=== PATIENT | female | born 1995 | race Caucasian/White ===

== ENCOUNTER → 2019-03-12 10:07 | Outpatient (CLI) | payer MEDICAID, SELFPAY | PROVIDERS: Family Provider Family Medicine; PCP Family Medicine; Referring Provider Advanced Practice Midwife; Visit Provider Advanced Practice Midwife | DX: O34.82 Maternal care for other abnormalities of pelvic organs, second trimester (principal); Z81.8 Family history of other mental and behavioral disorders; Z34.02 Encounter for supervision of normal first pregnancy, second trimester | CPT/HCPCS: 36415 ==

== ENCOUNTER 2019-08-06 12:15 | Inpatient (IN) | payer MEDICAID, SELFPAY ==
[2019-08-06 12:33] VITALS: BMI 34.8
[2019-08-06 13:41] LABS: Absolute Lymphocyte Count 1.98 X10^3/uL (0.83-4.51); Absolute Neutrophil Count 9.2 X10^3/uL (2.0-7.7); Basophil# 0.04 X10^3/uL; Basophil% 0.3 % (0-1); Eosinophil# 0.02 X10^3/uL; Eosinophils% 0.2 % (0-5); Hematocrit 36.9 % (37-47); Hemoglobin 11.7 g/dL (12.0-15.0); Lymphocyte # 1.98 X10^3/ul (4.0); Lymphocyte % 16.4 % (19-41); Mean Corp Hgb Conc 31.7 g/dL (32-36); Mean Corpuscular Hgb 26.1 pg (27.0-32.0); Mean Corpuscular Volume 82.2 fL (81-99); Mean Platelet Vol. 11.3 fl (6.2-12.0); Monocyte# 0.71 X10^3/uL; Monocyte% 5.9 % (0-10); NRBC Flagged by Analyzer 0 % (0-5); Neutrophil # 9.24 X10^3/uL (2.7-7.7); Neutrophil % 76.5 % (47-70); Platelet Count 262 K/mm3 (150-450); RBC Distribution Width CV 14.8 % (11.6-14.6); Red Blood Count 4.49 M/mm3 (4.2-5.4); White Blood Count 12.1 K/mm3 (4.4-11.0)
[2019-08-06 13:50] LABS: Prothrombin Time (Protime)PT. 12.8 SECONDS (11.7-14.9)
[2019-08-06 13:51] LABS: Partial Thromboplast Time 25.6 Seconds (24.1-36.2)
[2019-08-06 13:58] LABS: AST(SGOT) 12 U/L (15-37); Alanine Aminotransfer ALT/SGPT 7 U/L (13-56); Creatinine, Serum 0.63 mg/dL (0.55-1.02); EST Glomerular Filtration Rate 123 mL/min (>60); Est Glom Filt Rate - Afr Amer 148 mL/min (>60); Estimated Creatinine Clearance 112.92 ml/min; Uric Acid 5.7 mg/dL (2.6-6.0)
[2019-08-06] MEDS: Lactated Ringers 1,000 ML 50 ML IV (14:00)
[2019-08-06] MEDS: miSOPROStol 25 MCG TABLET VAGINAL (14:05)
[2019-08-06 16:35] LABS: Protein, Urine (Random) 141.3 mg/dL (<11.9); Protein:Creat Ratio 1229 mg/g CRE (0-200)
[2019-08-06] MEDS: 0.9% Normal Saline Single 100 ML IV.SOLN. IY (17:17)
--- NOTE | 2019-08-06 17:23 | PCM.HP.OB ---
History Date of Admission: 08/06/19 Final MARGARET: 08/06/19 Gestational age: 40 Weeks and 0 Days History of this : Patient presents from office for induction. Surgical History: Surgical History (Last Updated 08/06/19 @ 17:25 by Queenie Beck) History of tonsillectomy Z90.89 Allergies No Known Allergies Allergy (Verified 08/06/19 12:34) Home Medications: Home Medications Multivitamin [Children's Chewable Vitamin] 1 ea PO DAILY 08/06/19 Smoking Status: Never smoker Alcohol: None Number of Fetus(es): 1 NST - FHR Rate Baby A Baseline: 135 Variability:: Moderate Accelerations:: 15 x 15 Decelerations:: None NST Reactive:: Yes Uterine Activity:: Q2-3 minutes History Past Pregnancies: Past Pregnancies Delivery Date Name GA/ Weeks Outcome Route Wt Infant Sex Labor Length Anesthesia Delivery Location Provider FOB Labs: See [facility] H[facility]P Physical Exam General: Alert, Oriented x3 Abdomen: Soft, Non Tender, Non-Distended, Gravid Neurological: Cranial nerves II-XII grossly intact PER DIEM INTERPRETER: Normal external genitalia Estimated gestational size: Appropriate for gestational size Cervix Dilation (cm): 1 - Intracervical glover placed Station: -3 Effacement (%): 60 Assessment/Plan This is a 23 year-old, at 40 weeks gestational age with gestational hypertension. Admit to L&D. Gestational hypertension - s/p 1 dose cytotec & intracervical glover just placed. Will start pitocin at 7pm. Bp's overall normal to mildly elevated at this time. GBS negative. EFW less than 4500g - patient with adequate pelvis. Pain - epidural as desired.
[2019-08-06] MEDS: Oxytocin 30 units/NS 500 ml 30 UNITS/500 ML IV.SOLN IV (19:09)
[2019-08-06] MEDS: Lactated Ringers 500 ML 999 ML IV (20:36)
[2019-08-06] MEDS: fentaNYL-bupivacaine (epidural) 100 ML BAG EPIDURAL (21:28)
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
[2019-08-06] MEDS: Lactated Ringers 1,000 ML 200 ML IV (23:40)
[2019-08-07] VITALS (31 sets, daily range): BP systolic 94–171; BP diastolic 59–104; PULSE 86–113; RESP 15–24; TEMP 36.3–37; O2SAT 96–100
[2019-08-07] MEDS: Ondansetron 4 MG/2 ML Vial IV ×2 (01:25→06:40)
[2019-08-07] MEDS: fentaNYL-bupivacaine (epidural) 100 ML BAG EPIDURAL ×2 (02:03→07:29)
[2019-08-07] MEDS: Magnesium Sulfate 4gm/100mL 4 GM/100 ML IV.SOLN. IV (04:18)
[2019-08-07] MEDS: Lactated Ringers 1,000 ML 50 ML IV (04:36)
[2019-08-07] MEDS: Magnesium Sulfate 20 GM/500 ML BAG IV ×3 (04:36→23:55)
--- NOTE | 2019-08-07 08:25 | PCM.PN.BLA ---
Progress Note At bedside to check on pt. She has just started with pushing about 30-45 min ago. Patient is exhausted and feels she cannot push adequately. Cvx 10/100/0, ROP. Continue current care. Will try position changes with pushing STROKE Vital Signs/Narrative: Vital Signs Temp Pulse Resp BP Pulse Ox 08/07/19 07:30 98.1 F 110 H 16 137/87 H 99
--- NOTE | 2019-08-07 10:16 | PCM.PN.BLA ---
Progress Note At bedside to examine pt. She has now been pushing for almost 3 hours. There has been no change in station. Baby did not rotate with position changes. Attempted to manually rotate baby, and baby remains in ROP position. The patient is exhausted and pushing is poor. Unable to perform a vacuum assisted delivery given station. Discussed primary section with patient vs pushing for additional time but unlikely to make any progress. Recommend a section at this time for maternal exhaustion, poor maternal pushing, arrest of descent, persistent occiput posterior position, pre-eclampsia. STROKE Vital Signs/Narrative: Vital Signs Temp Pulse Resp BP Pulse Ox 08/07/19 09:30 98.4 F 104 H 18 145/84 H 100 08/07/19 08:45 113 H 16 131/87 H 99 08/07/19 07:30 98.1 F 110 H 16 137/87 H 99
[2019-08-07] MEDS: Cefazolin 2 GM in 0.9% Normal Saline 100 ML IV (10:45)
[2019-08-07] MEDS: Sodium Citrate/Citric Acid 30 ML UDC PO (10:47)
--- NOTE | 2019-08-07 10:52 | PCM.PN.BLA ---
Progress Note Reviewed risks including but not limited to bleeding, hemorrhage needing a blood transfusion, infection, injury to surrounding organs and vessels. Patient understands the risks with a c section, and desires to proceed. STROKE Vital Signs/Narrative: Vital Signs Temp Pulse Resp BP Pulse Ox 08/07/19 09:30 98.4 F 104 H 18 145/84 H 100 08/07/19 08:45 113 H 16 131/87 H 99 08/07/19 07:30 98.1 F 110 H 16 137/87 H 99
[2019-08-07] MEDS: Carboprost Tromethamine 250 MCG/ML Ampul IM (11:19)
--- NOTE | 2019-08-07 11:50 | PCM.OPRPT ---
Problem List (1) 39 weeks gestation of Status: Acute (2) Primiparous Status: Acute (3) Gestational hypertension Status: Acute (4) Preeclampsia Status: Acute (5) Arrested labor Status: Acute Report of Operation Date of Procedure: 08/07/19 Pre-Operative Diagnosis: 39 week gestation, primiparous patient, gHTN with superimposed pre-eclampsia with severe features, arrest of descent, maternal exhaustion with pushing Post-Operative Diagnosis: As above Surgery/Procedure Performed:: PLTCS via pfannenstiel incision Description of Surgical Findings:: Normal-appearing uterus and bilateral fallopian tubes and ovaries. Fetus in vertex position. Clear fluid. Normal-appearing and intact placenta. Type of Anesthesia:: Epidural Specimen's removed: Placenta Drains: Diallo Estimated Blood Loss (mL): 900 cc Description of Procedure: Indications: IOL started at 39 wk gestation for gHTN. She had persistent severe range BP's and an elevated p/c ratio, therefore she was diagnosed with pre-eclampsia with severe features and started on mag gtt for seizure prophylaxis. She progressed to complete. She pushed for 3 hours with poor pushing effort, and maternal exhaustion. Station remained at 0. Fetus remained in occiput posterior position despite position changes and attempt at rotation. After discussion of risks, benefits, and alternatives patient desired to proceed with a primary section. Patient was taken to the operating room where epidural anesthesia was found to be adequate. The patient was prepped and draped in the usual sterile fashion in the supine position with a leftward tilt. A Pfannenstiel skin incision was made. The skin incision was carried down to the underlying layer of the fascia with sharp dissection. The fascia was incised in the midline and extended laterally using Calzada scissors. The fascia was then dissected off of the rectus muscles using a combination of blunt and sharp dissection. The rectus muscles were in the midline. The peritoneum was entered carefully with sharp dissection and extended cephalad and caudad with good visual visualization of the bladder. The vesicouterine peritoneum was dissected off the lower uterine segment. A low transverse incision was made along the uterus and the uterine incision was extended bluntly. The fetus was presenting in vertex position and in occiput posterior position. Using a hand from below the head was brought up to the incision, and the head was delivered without difficulty followed by the body easily. The cord was clamped and cut and the baby was handed off to the nursery staff. Cord blood was then obtained. The placenta was delivered manually and noted to be normal-appearing and intact. Uterus was explored and cleared of all clot and debris. The uterus was exteriorized for better visualization. The uterine incision was then closed in 1 layer with Vicryl suture. The tubes and ovaries were examined and appeared to be normal. The uterine incision was hemostatic. The uterus was placed back in the abdomen. The peritoneum was closed with a running Vicryl stitch. The fascia was closed with a running Vicryl stitch. The subcutaneous layer was irrigated and reapproximated using Vicryl. The skin was then reapproximated using a running Monocryl suture. At the end of the procedure all instrument counts were correct. The patient was taken to the recovery room in stable condition. Grafts/Implants Used: None - Complications None - Admit VTE Documentation VTE Present on Admission: No Delivery Classification: MANPREET Gestational age: 39 wks Type of Anesthesia:: Epidural Date of Procedure: 08/07/19 Indications for : Arrrest of Descent Amniotic Fluid Description: Clear Placenta Disposition: Routine to Lab Drain: Diallo to straight drain Cord Entanglement: None Infant Gender: Female Delayed cord clamping: No - Admit VTE Documentation VTE Present on Admission: No VTE Mechan Device Prophylaxis: SCD's VTE Pharm Prophylaxis ordered?: Yes
--- NOTE | 2019-08-07 11:54 | PLAC_PTH ---
PATIENT: FEROZ MAXWELL LOC: [facility] U#:[id number] AGE/SX: 23/ ROOM: WP006 RE08/06/[address]: Dr. Nika Jaramillo DO : 1995 BED: 1 DIS: 08/11/2019 SPEC #: [id number] RECD: 08/07/19 14:03 STATUS: HAILEY REQ #: [id number] RAFAEL: 08/07/19 11:[address]: Nika Jaramillo DEPT: SURGICAL PATHOLOGY RECD BY: Ahmet Jennings ENTERED: 08/07/19 14:10 SP TYPE: PLACENTA OTHR DR: Dr. Reji Calderón MD Tissues: Placenta, NOS Procedures: Surgery Specimen Level V HEADER OPERATION: Primary section PRE-OP DIAGNOSIS: Preeclampsia with severe features TISSUE SUBMITTED: Placenta MICROSCOPIC DIAGNOSIS Placenta: Placental disc - third trimester placenta (477 gm). - Focal mild acute vasculitis of subamnionic blood vessels. - Focal area of intraparenchymal hemorrhage (0.5 cm in greatest dimension). Membranes - focal mild acute chorioamnionitis. Umbilical cord - three blood vessels and no pathologic diagnosis. SJ:valerie 08/09/19 MICROSCOPIC DESCRIPTION Slides are reviewed. GROSS DESCRIPTION SPECIMEN: PLACENTA / CLINICAL INFORMATION: A. Weight: 2.99 kg B. Gestational Age: 40 weeks C. Sex: Female PLACENTAL WEIGHT (POST FIXATION): 477 gm PLACENTAL DIMENSIONS: 16 x 14 x 3 cm PLACENTAL SHAPE: Usual ovoid PLACENTAL WEIGHT FOR GESTATIONAL AGE: Within 10-99th percentile MEMBRANES - Present A. Insertion: Marginal B. Site of rupture from edge: At edge of placental disc C. Color of membrane: Upton-glez D. Abnormalities: None UMBILICAL CORD - Present A. Color: Upton-glez B. Insertion: Eccentric C. Length: 27 cm D. Diameter: 1 cm E. Number of vessels: Three F. Abnormalities: None PLACENTAL DISC - Present A. Color of surface: Upton-glez B. surface abnormalities: None C. Maternal cotyledons: Intact with minimal tears D. Attached retro placental clot: No clot E. Cut surface: Dark red and spongy F. Lesions: None G. Separate clot: 6 x 4.5 x 1.5 cm SECTIONS SUBMITTED: 1. Umbilical cord ( end inked) 2. Membrane roll 3. Placental disc, and maternal surfaces 4. Placental disc, and maternal surfaces 5. Placental disc, and maternal surfaces AM:valerie 08/08/19 TC:2 CPT: 11513
[2019-08-07] MEDS: miSOPROStol 200 MCG Tablet 800 MCG RECTAL (12:00)
[2019-08-07] MEDS: Oxytocin 30 units/NS 500 ml 30 UNITS/500 ML IV.SOLN 167 UNITS IV (12:20)
[2019-08-07] MEDS: Labetalol 100 MG Tablet PO ×2 (14:58→22:23)
[2019-08-07] MEDS: Lactated Ringers 1,000 ML 75 ML IV (15:41)
--- NOTE | 2019-08-07 19:45 | NURSING ---
IV pump set at correct settings for Magnesium Sulfate at 50 mL/hour upon arrival of this RN's shift. The rate was documented incorrectly on the IV titration sheet during the previous shift, but was administered correctly. IV titration sheet adjusted to the correct rate upon start of this RN's assessment.
--- NOTE | 2019-08-07 20:07 | NURSING ---
Indwelling urinary catheter in place. WNL.
--- NOTE | 2019-08-07 21:30 | NURSING ---
Assisted patient in sitting up on the side of the bed. Patient attempted to stand, but legs looked weak. Encouraged patient to sit at the edge of the bed for a few minutes. Patient experienced some nausea, but it subsided when the patient laid back down. Vital signs stable. Will continue to monitor.
[2019-08-08] VITALS (13 sets, daily range): BP systolic 92–136; BP diastolic 53–75; PULSE 80–105; RESP 14–18; TEMP 36.2–37; O2SAT 97–100
[2019-08-08] MEDS: Ketorolac 30 MG/ML Syringe IV ×4 (01:06→17:44)
[2019-08-08] MEDS: 0.9% Saline Lock 10 ML Syringe IV ×4 (01:06→17:45)
[2019-08-08] MEDS: Enoxaparin 40 MG/0.4 ML Syringe SC (01:07)
[2019-08-08] MEDS: Lactated Ringers 1,000 ML 75 ML IV (04:24)
[2019-08-08 04:25] LABS: Hematocrit 27.4 % (37-47); Hemoglobin 8.5 g/dL (12.0-15.0); Mean Corpuscular Hgb 26.2 pg (27.0-32.0); Mean Corpuscular Volume 84.3 fL (81-99); Mean Platelet Vol. 11.1 fl (6.2-12.0); Platelet Count 198 K/mm3 (150-450); RBC Distribution Width CV 15.4 % (11.6-14.6); RBC Distribution Width SD 46.6 fl (35.1-43.9); Red Blood Count 3.25 M/mm3 (4.2-5.4); White Blood Count 17.8 K/mm3 (4.4-11.0)
--- NOTE | 2019-08-08 04:35 | NURSING ---
Assisted patient in changing pad. Bleeding WNL. Encouraged patient to continue to use incentive spirometer.
[2019-08-08 04:54] LABS: ALB/GLOB Ratio 0.5 RATIO (0.9-2.4); AST(SGOT) 16 U/L (15-37); Alanine Aminotransfer ALT/SGPT 7 U/L (13-56); Albumin, Serum 1.7 g/dL (3.2-5.0); Alkaline Phosphatase 128 U/L (45-117); Anion Gap 5 (5-15); BUN 7 mg/dL (7-18); BUN/Creat Ratio 9.6 RATIO (10-20); Chloride 103 mmol/L (98-107); Creatinine, Serum 0.73 mg/dL (0.55-1.02); EST Glomerular Filtration Rate 103 mL/min (>60); Est Glom Filt Rate - Afr Amer 124 mL/min (>60); Estimated Creatinine Clearance 97.45 ml/min; Globulin 3.2 g/dL (2.2-4.2); Glucose 121 mg/dL (74-106); Potassium 3.9 mmol/L (3.5-5.1); Protein, Total 4.9 g/dL (6.4-8.2); Sodium Level 134 mmol/L (136-145)
[2019-08-08 05:44] LABS: Magnesium 6.7 mg/dL (1.6-2.6)
[2019-08-08] MEDS: Labetalol 100 MG Tablet PO ×2 (10:56→22:51)
--- NOTE | 2019-08-08 13:09 | PCM.PN.OB ---
Patient Problems: Active and Suspected Problems (Last Updated 08/06/19 @ 17:25 by Queenie Beck) 39 weeks gestation of (Acute) Subjective: Pt doing well. No lightheadedness, dizziness, CP, SOB, palpitations, HIDALGO, vision changes, uncontrolled pain, leg pain. Tarsha reg diet without N/V. Ambulating without difficulty. Has not yet voided. - Physical Exam Vitals/I&O's: Vital Signs Temp Pulse Resp BP Pulse Ox 97.3 F L 105 H 18 111/75 98 08/08/19 11:15 08/08/19 11:15 08/08/19 11:15 08/08/19 11:15 08/08/19 11:15 Oxygen Delivery Method Room Air Weight: 196 lb 10.437 oz Body Mass Index (BMI) 34.8 Intake and Output for Last 24 Hours 08/06/19 08/07/19 08/08/19 23:59 23:59 23:59 Intake Total 1336.67 / 1336.67 5038.77 / 5038.77 1633.33 / 1633.33 Output Total 350 / 350 4400 / 4400 1950 / 1950 Balance 986.67 / 986.67 638.77 / 638.77 -316.67 / -316.67 General: Alert, No apparent distress HEENT: Atraumatic Abdomen: Soft, Non Tender, - - Dressing c/d/i Extremities: No edema, No Calf Tenderness Skin: No rashes Neurological: Neuro grossly intact Psych/Mental Status: Normal Affect, Appropriate Laboratory Results 08/07/19 12:25: Screen NEGATIVE, Baby's Blood Type A POSITIVE, Baby's YOMAIRA NEGATIVE 08/08/19 04:00: WBC 17.8 H, RBC 3.25 L, Hgb 8.5 L, Hct 27.4 L, MCV 84.3, MCH 26.2 L, MCHC 31.0 L, RDW Std Deviation 46.6 H, RDW Coeff of Kianna 15.4 H, Plt Count 198, MPV 11.1 08/08/19 04:00: Sodium 134 L, Potassium 3.9, Chloride 103, Carbon Dioxide 26.0, Anion Gap 5, BUN 7, Creatinine 0.73, Estim Creat Clear Calc 97.45, Est GFR (MDRD) Af Amer 124, Est GFR (MDRD) Non-Af 103, BUN/Creatinine Ratio 9.6 L, Glucose 121 H, Calcium 7.0 L, Total Bilirubin 0.20, AST 16, ALT 7 L, Alkaline Phosphatase 128 H, Total Protein 4.9 L, Albumin 1.7 L, Globulin 3.2, Albumin/Globulin Ratio 0.5 L 08/08/19 04:00: Magnesium 6.7 H* Current Medications Acetaminophen (Tylenol Liquid) 1,000 mg PO Q8H PRN PRN PRN Reason: PAIN 1-3/10 Bisacodyl (Dulcolax) 10 mg RECTAL UD PRN PRN Reason: If no BM Calcium Gluconate () 1 gm IV X1 PRN PRN Reason: MAGNESIUM TOXICITY Enoxaparin Sodium (Lovenox) 40 mg SC DAILY [facility] Last Admin: 08/08/19 01:07 Dose: 40 mg Documented by: Hydrocortisone (Hytone) 1 applic TOPICAL TID PRN PRN; Protocol PRN Reason: Discomfort Naloxone HCl 4 mg/ Dextrose 504 mls @ 0 mls/hr IV .Q0M PRN; Protocol PRN Reason: Respiratory depression Ketorolac Tromethamine (Toradol) 30 mg IV Q6 [facility] Stop: 08/13/19 00:31 Last Admin: 08/08/19 12:43 Dose: 30 mg Documented by: Labetalol HCl (Trandate) 20 - 80 mg IV Q10M PRN PRN; Protocol PRN Reason: BP>160/110mmHg Labetalol HCl (Trandate) 100 mg PO BID [facility] Last Admin: 08/08/19 10:56 Dose: 100 mg Documented by: Naloxone HCl (Narcan) 0.02 mg IV Q1M PRN PRN Reason: RR <10 and pt unresponsive Ondansetron HCl (Zofran) 4 mg IV Q4H PRN PRN PRN Reason: Nausea Oxycodone HCl (Oxyir) 5 - 10 mg PO Q4H PRN PRN PRN Reason: Pain Score 4-10/10 Prochlorperazine Edisylate (Compazine Iv) 10 mg IV Q6H PRN PRN PRN Reason: NAUSEA Senna/Docusate Sodium (Senokot-S, Daija-Colace) 0 tablet PO DAILY PRN PRN Reason: Constipation Simethicone (Mylicon) 80 mg PO PCHS PRN PRN Reason: Indigestion/stomach pain Sodium Chloride () 5 - 15 ml IV UD PRN PRN Reason: SALINE FLUSH Last Admin: 08/08/19 12:44 Dose: 10 ml Documented by: Medical Necessity - Tobacco Use Smoking Status: Never smoker Assessment/Plan All Active Problems (Last Updated 08/06/19 @ 17:25 by Queenie Beck) 39 weeks gestation of (Acute) PPD#1 s/p PLTCS for arrest of descent, maternal exhaustion, pre-eclampsia with severe features. - Pt doing well - - S/p PP mag. BP's controlled on Labetalol 100mg BID. No pre-e symptoms currently. Continue to closely monitor - Dispo: Routine care. Possible d/c home tomorrow
[2019-08-08] MEDS: Acetaminophen 650 MG/20 ML UDC 1000 MG PO (14:07)
--- NOTE | 2019-08-08 22:57 | NURSING ---
MMR vaccine information reviewed with pt and educational information sheet provided. pt declines wanting the MMR vaccine while here at the hospital. this decision to be passed along to next nurse and physician.
[2019-08-09] MEDS: Ketorolac 30 MG/ML Syringe IV ×3 (00:21→11:33)
[2019-08-09] MEDS: 0.9% Saline Lock 10 ML Syringe IV ×3 (00:21→11:33)
[2019-08-09 02:14] VITALS: BP 113/60; PULSE 83; RESP 16; TEMP 37.1
--- NOTE | 2019-08-09 08:07 | PN.OBGYN_ITS ---
Patient Problems: Active and Suspected Problems (Last Updated 08/06/19 @ 17:25 by Queenie Beck) 39 weeks gestation of (Acute) Primiparous (Acute) Gestational hypertension (Acute) Preeclampsia (Acute) Arrested labor (Acute) Subjective: pt seen at bedside, doing well. pt reports good pain control. lochia mild. Breast feeding - having difficulty. No visual changes, or headaches. passing flatus, voiding w/o difficulty. - Physical Exam Vitals/I&O's: Vital Signs Temp Pulse Resp BP Pulse Ox 98.8 F 83 16 113/60 97 08/09/19 02:14 08/09/19 02:14 08/09/19 02:14 08/09/19 02:14 08/08/19 15:36 Oxygen Delivery Method Room Air Weight: 89.2 kg Body Mass Index (BMI) 34.8 Intake and Output for Last 24 Hours 08/07/19 08/08/19 08/09/19 23:59 23:59 23:59 Intake Total 5038.77 / 5038.77 2033.33 / 2033.33 Output Total 4400 / 4400 2350 / 2350 Balance 638.77 / 638.77 -316.67 / -316.67 General: Alert, Oriented x3 Abdomen: Soft, - - fundus firm. dressing dry and intact Extremities: Capillary Refill Less than 3 Seconds Current Medications Acetaminophen (Tylenol Liquid) 1,000 mg PO Q8H PRN PRN PRN Reason: PAIN 1-3 Last Admin: 08/08/19 14:07 Dose: 1,000 mg Documented by: Bisacodyl (Dulcolax) 10 mg RECTAL UD PRN PRN Reason: If no BM Calcium Gluconate () 1 gm IV X1 PRN PRN Reason: MAGNESIUM TOXICITY Enoxaparin Sodium (Lovenox) 40 mg SC DAILY [facility] Last Admin: 08/08/19 01:07 Dose: 40 mg Documented by: Hydrocortisone (Hytone) 1 applic TOPICAL TID PRN PRN; Protocol PRN Reason: Discomfort Naloxone HCl 4 mg/ Dextrose 504 mls @ 0 mls/hr IV .Q0M PRN; Protocol PRN Reason: Respiratory depression Ketorolac Tromethamine (Toradol) 30 mg IV Q6 [facility] Stop: 08/13/19 00:31 Last Admin: 08/09/19 06:04 Dose: 30 mg Documented by: Labetalol HCl (Trandate) 20 - 80 mg IV Q10M PRN PRN; Protocol PRN Reason: BP>160/110mmHg Labetalol HCl (Trandate) 100 mg PO BID [place] Last Admin: 08/08/19 22:51 Dose: 100 mg Documented by: Naloxone HCl (Narcan) 0.02 mg IV Q1M PRN PRN Reason: RR <10 and pt unresponsive Ondansetron HCl (Zofran) 4 mg IV Q4H PRN PRN PRN Reason: Nausea Oxycodone HCl (Oxyir) 5 - 10 mg PO Q4H PRN PRN PRN Reason: Pain Score 4-10/10 Prochlorperazine Edisylate (Compazine Iv) 10 mg IV Q6H PRN PRN PRN Reason: NAUSEA Senna/Docusate Sodium (Senokot-S, Daija-Colace) 0 tablet PO DAILY PRN PRN Reason: Constipation Simethicone (Mylicon) 80 mg PO PCHS PRN PRN Reason: Indigestion/stomach pain Last Admin: 08/09/19 00:21 Dose: 80 mg Documented by: Sodium Chloride () 5 - 15 ml IV UD PRN PRN Reason: SALINE FLUSH Last Admin: 08/09/19 06:04 Dose: 10 ml Documented by: Medical Necessity - Tobacco Use Smoking Status: Never smoker Assessment/Plan All Active Problems (Last Updated 08/06/19 @ 17:25 by Queenie Beck) 39 weeks gestation of (Acute) Primiparous (Acute) Gestational hypertension (Acute) Preeclampsia (Acute) Arrested labor (Acute) POD#2, doing well routine care pain mgmt HOLD labetalol- BPs low. likely dc home tmrw- needs more assistance with - and will monitor BPs once hold labetalol
[2019-08-09 09:09] VITALS: BP 118/79; PULSE 79; RESP 20; TEMP 36.4
[2019-08-09] MEDS: Acetaminophen 650 MG/20 ML UDC 1000 MG PO ×2 (09:42→20:04)
[2019-08-09] MEDS: Enoxaparin 40 MG/0.4 ML Syringe SC (09:43)
[2019-08-09 14:00] VITALS: BP 114/74; RESP 18; TEMP 36.1
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
--- NOTE | 2019-08-09 16:40 | CASEMGMT ---
Social Work Labor and Delivery Shortly after initial assessment this scientific writer returned to the MOB's room to give some further information on the [facility]. MOB was holding the baby and reports that had just fed and the baby and this went well. Baby made a small squeak and MOB picked up the pacifier to put in baby's mouth. MOB made comment to the baby as to whether the baby was going to make the MOB pacify the baby with a pacifier. As baby was appearing to be sleeping after the small noise, this scientific writer let MOB know that baby's sometimes make sounds only briefly. Note, MOB had also informed this scientific writer that has an appointment coming up with next week on 08.14.2019 and intent to follow through with this. Spoke with Av Chua RN about this scientific writer's conversations with mother of baby (MOB) today. RN reports the father of baby (FOB) has been attentive to MOB and baby when visiting, and appropriately supportive. Verified with RN that feeding went better this afternoon. RN reports MOB was able to get baby latched and fed at breast for 12 minutes. PLAN: MOB and baby to home when ready. FOB will be at home for 3 weeks to help with transition home. MOB agrees to [facility] referral for added support. MOB provided with [place] Baby packet, [facility] packet including crisis lines and mental health support, and mood and anxiety disorder packet. MOB provided with information on the [facility] Agency On Aging so as to call for a free detention care consultation, to try and get some more help and support for the nqwsrn-cn-idc who lives in home. Should any concerns arise with nursing staff regarding mother/child interactions or bonding social work can revisit need for additional referrals. Social work remains available as indicated should additioanl needs or concerns arise during the remainder of stay. -NUHA Erazo, ORTHOTICS PROSTHETICS ASSISTANT
[2019-08-09 19:50] VITALS: BP 138/85; PULSE 105; RESP 16; TEMP 37.2; O2SAT 98
[2019-08-09 22:44] VITALS: BP 119/72
[2019-08-10 02:22] VITALS: BP 144/91; PULSE 84; RESP 16; TEMP 36.7; O2SAT 99
[2019-08-10] MEDS: Acetaminophen 650 MG/20 ML UDC 1000 MG PO ×3 (04:34→22:42)
[2019-08-10 04:37] VITALS: BP 148/90
--- NOTE | 2019-08-10 05:56 | NURSING ---
0430 RN into room for rounds. medicated with tylenol for pain per pt request. nursery RN brought baby back to room for feed, baby showing feeding ques. nursery RN handed baby to pt. pt held baby and continued talking to RN as baby showing feeding ques, pt then handed baby to RN so she could go to bathroom. after she returned to bathroom pt encouraged to feed baby. RN assisted with which required RN to hold baby at breast for entire feed. baby breastfed for 10 mins then fell asleep, RN demonstrated how to burp baby. baby then woke up and continued to show feeding ques. RN discussed the feeding ques with pt and encouraged her to try to feed baby on other breast, pt then said i think i would rather give her some formula so i know she is full RN then discussed and demonstrated cup feeding formula to baby. pt then cup fed baby under supervision. during this conversation pt with flat affect and intermittently became tearful. This RN asked pt how she is feeling emotionally, she replied i just feel really stressed This RN asked pt if she feels as she does not want to care for herself or her baby and she replied its not that i dont want to, i just feel like i cant pt then continued and stated that her really wanted her to breastfeed due to cost of formula. RN encouraged pt to renew her WICC (which pt states runs out at the end of this month) and discussed pt can continue with and supplement with formula after feeds. RN encouraged pt to pump after feeds to stimulate milk production/supply. pump is set up in room, pt reported not wanting to pump at this time. pt expressed to this RN that she is stressed due to father in law living with them, whom has chronic pain issues and is unable to maintain proper hygiene, pt also reported having limited support from family and friends in the area and is concerned about when her returns to work in a couple weeks since he works third shift. emotional support given to pt, will continue to monitor feeds , emotional needs and offer encouragement as needed
[2019-08-10 08:00] VITALS: BP 146/99; PULSE 80; RESP 16; TEMP 36.3
[2019-08-10] MEDS: Labetalol 100 MG Tablet PO (08:36)
--- NOTE | 2019-08-10 08:37 | PN.OBGYN_ITS ---
Patient Problems: Active and Suspected Problems (Last Updated 08/06/19 @ 17:25 by Queenie Beck) 39 weeks gestation of (Acute) Primiparous (Acute) Gestational hypertension (Acute) Preeclampsia (Acute) Arrested labor (Acute) Subjective: Patient seen at bedside, doing well. Denies headache or visual changes at this time. Good pain control. Mild lochia. There are some concerns from nursing staff with patient breast-feeding and taking care of the baby. - Physical Exam Vitals/I&O's: Vital Signs Temp Pulse Resp BP Pulse Ox 98.0 F 84 16 148/90 H 99 08/10/19 02:22 08/10/19 02:22 08/10/19 02:22 08/10/19 04:37 08/10/19 02:22 Oxygen Delivery Method Room Air Weight: 89.2 kg Body Mass Index (BMI) 34.8 Intake and Output for Last 24 Hours 08/08/19 08/09/19 08/10/19 23:59 23:59 23:59 Intake Total 2033.33 / 2033.33 Output Total 2350 / 2350 Balance -316.67 / -316.67 General: Alert, Oriented x3 Abdomen: Soft, - - fundus firm. dressing dry and intact Extremities: No Calf Tenderness Current Medications Acetaminophen (Tylenol Liquid) 1,000 mg PO Q8H PRN PRN PRN Reason: PAIN 1-3 Last Admin: 08/10/19 04:34 Dose: 1,000 mg Documented by: Bisacodyl (Dulcolax) 10 mg RECTAL UD PRN PRN Reason: If no BM Calcium Gluconate () 1 gm IV X1 PRN PRN Reason: MAGNESIUM TOXICITY Enoxaparin Sodium (Lovenox) 40 mg SC DAILY [facility] Last Admin: 08/09/19 09:43 Dose: 40 mg Documented by: Hydrocortisone (Hytone) 1 applic TOPICAL TID PRN PRN; Protocol PRN Reason: Discomfort Naloxone HCl 4 mg/ Dextrose 504 mls @ 0 mls/hr IV .Q0M PRN; Protocol PRN Reason: Respiratory depression Labetalol HCl (Trandate) 20 - 80 mg IV Q10M PRN PRN; Protocol PRN Reason: BP>160/110mmHg Labetalol HCl (Trandate) 100 mg PO BID [facility] Last Admin: 08/10/19 08:36 Dose: 100 mg Documented by: Naloxone HCl (Narcan) 0.02 mg IV Q1M PRN PRN Reason: RR <10 and pt unresponsive Ondansetron HCl (Zofran) 4 mg IV Q4H PRN PRN PRN Reason: Nausea Oxycodone HCl (Oxyir) 5 - 10 mg PO Q4H PRN PRN PRN Reason: Pain Score 4-10/10 Prochlorperazine Edisylate (Compazine Iv) 10 mg IV Q6H PRN PRN PRN Reason: NAUSEA Senna/Docusate Sodium (Senokot-S, Daija-Colace) 0 tablet PO DAILY PRN PRN Reason: Constipation Simethicone (Mylicon) 80 mg PO PCHS PRN PRN Reason: Indigestion/stomach pain Last Admin: 08/09/19 00:21 Dose: 80 mg Documented by: Sodium Chloride () 5 - 15 ml IV UD PRN PRN Reason: SALINE FLUSH Last Admin: 08/09/19 11:33 Dose: 10 ml Documented by: Medical Necessity - Tobacco Use Smoking Status: Never smoker Assessment/Plan All Active Problems (Last Updated 08/06/19 @ 17:25 by Queenie Beck) 39 weeks gestation of (Acute) Primiparous (Acute) Gestational hypertension (Acute) Preeclampsia (Acute) Arrested labor (Acute) POD#3, BPs trending back up- s/p MAG PP for PRE E, and concerns with caring for 1) social work to see patient today 2) restart Labetalol 100mg BID 3) monitor BPs today- consider dc home tomorrow. I do not feel the patient is ready for dc home at this time due to elevated BPs and social concerns that have been raised 4) WIC reviewed with patient- will need formula to supplement breast feeding 5) pain mgmt
[2019-08-10] MEDS: Enoxaparin 40 MG/0.4 ML Syringe SC (10:44)
--- NOTE | 2019-08-10 10:55 | CASEMGMT ---
Addendum entered by Marie Danielle 08/10/19 16:45: This SW provided community relations specialist, Tori Smith, with personal cell phone for SHELLEY Chavez, in the event that MOB and are discharged home on 08/11/19. She agreed to provide this information to charge nurse, Ina. Av Tripathi in agreement with this plan. VLAD Villalpando Original Note: Social Work Date of Referral: 08/10/19 Referred By: Nursing Time of Referral: 9AM Date of Intervention: 08/10/19 Time of Intervention: 10AM Reason for Referral: Concerns with MOB/Feeding Issues/10% Weight Loss for Baby Information Obtained By: Collaboration with charge nurse, Ina; Linh GRESHAM and MOB Appointments: 08/12/19 at 8:30AM with jockey room custodian, Dr. Chandrakant Swift; Rn Post Partum on 08/14/19. Strongly encouraged MOB to call [facility] to schedule an appointment with her counselor and to schedule renewal appointment with WIC before the end of July when this service expires for MOB and infant. MOB stated that she will schedule both appointments on Monday even though she doesn't think much of WIC. This SW advised MOB that her 's nutrition is a priority and that supplementation is needed; advised MOB that it is not an option for her not to renew WIC. MOB voiced agreement. MOB continues to voice agreement with Help Me Grow referral upon discharge. Behavioral Health Issues: MOB with minimal eye contact during interview with this SW. Affect appeared flat and MOB was intermittently tearful. She states that she knew this would be a big adjustment for her and that it is going to take a lot of effort with regard to taking care of her baby. MOB conveys that the months of July and August are difficult for her at baseline due to the weather and being stuck inside. She admits to increased anxiety now that her baby has been born. She also shares with this SW that she lacks patience and has a short fuse. MOB conveys that she doesn't handle children well, especially ones that aren't made to mind. She in fact stated this several times. MOB also mentioned several times that she has never done well with being alone and that she is concerned about when her returns to work. MOB unable to provide a positive feeling word for how she feels about her baby and for how she feels about being a mother. She used the word concerned with regard to how she feels about her baby and the word challenged for how she feels about being a mother. AMIE expresses that she can't help but smile when she looks at her and yet this SW did not see MOB smile one time during our interview. Medical Issues: AMIE's blood pressure is being monitored today and Labetatol has been started. Baby has lost 10% of her body weight and supplements are ordered for after feedings. AMIE did state that she wants her baby to be in a more healthy state. She does share that physically, it is easier for her to feed on one side but painful to do so on the other side; AMIE shares that on a mental level, breast feeding feels odd to her. Support System/Caregivers: AMIE states that her will have approximately 1 1/2 weeks off from work by the time she and baby return home from the hospital. She does report that her loygjl-wu-kxs cleaned her house before she delivered and that she has told her that she will be available on a daily basis when she and baby return home. AMIE also reports that her 2 qlqsul-jk-kfkn are supportive but have to rely on getting a ride in order to physically assist. This SW discussed benefits of even talking to someone on the phone for support and reassurance and MOB admits that she has been doing this since her went home to get some sleep and that she does find this to be helpful. Post- Depression/Shaken Baby/Safe Sleep: Reviewed with MOB again regarding each of these areas; information provided to MOB by Av CURTIS. Reviewed signs of post- depression and that it is imperative to notify her physician or baby's jockey room custodian and family members if she begins to exhibit signs of not wanting to take care of her baby. Encouraged MOB to notify hospital staff if she begins to feels depressed or unable to care for her baby. Reviewed risks, including , of shaking her baby and discussed plan for if she would feel like shaking her baby. MOB reports that she would walk away or hand her baby to someone else if she ever felt like shaking her. Reviewed back to sleep for baby's position in crib. MOB reports that infant will be sleeping in the same room with she and and confirms having a crib and bassinet. Concerns: Per nursing, MOB is not following feeding cues from baby and she has required full assist from nursing staff, with nursing having to hold baby to MOB's breast. She has also reported being too tired to use the breast pump. MOB also appears to use pacifier instead of feeding baby. She has also commented that she does not know if she can take care of her baby. Assessment: MOB was standing up, holding infant and talking on cell phone at same time when this SW entered room. MOB was not holding baby correctly and MOB did not look comfortable in holding her baby. Introduced self and SW role at [facility]. She immediately put baby down and left her uncovered for several minutes. MOB did eventually cover baby. She looked down quite a bit, avoiding eye contact with this SW and with her baby. She did end phone call after I knocked and entered room. This SW concerned with MOB's affect, apparent anxiety and lack of interest/indifference in her baby. MOB unable to express any positive feelings about her baby or her new role as mom. She appears to require additional support and education with care for her . AMIE mentioned several times that it is going to challenging for her to take care of her baby and that she does not like to be alone. She also commented that she is worried about her sleep and getting up in the middle of the night. She does not appear comfortable with breast feeding however conveys that she does not have a choice in the matter. AMIE does acknowledge that the other social scientist provided her with information for her baby and for possible assistance for her ddnbqz-rr-xge who resides with them. She states plan to utilize information. AMIE denies any other needs at this time. She is aware of plan created by nursing to have 2 independent feeds and 2 diaper changes (she has yet to change a diaper). Reviewed with MOB regarding hunger cues and the need for consistent nourishment and that a pacifier is NOT a substitute for feeding her baby. Reviewed that it is normal for babies to cry and make different noises. MOB informed this SW that if baby is feed and has a clean butt that she can lay and cry. SW provided encouragement to MOB and strongly encouraged her to notify staff of any concerns, need for assistance with 's care and any feelings that do not seem right. EVER thanked MOB for meeting with me. PLAN: Collaboration with Chuck CURTIS, regarding my interview with MOB and concerns as above. If MOB and infant are discharged on 08/11/19 the staff is to call Chuck; Chuck will decide about a CPS referral in [facility]. Discussion with charge nurse, Ina, regarding my concerns and recommendation for MOB to stay until Monday to give more time for consistent, independent feedings; baby weight gain and further education for care to MOB. VLAD Villalpando
[2019-08-10 14:00] VITALS: BP 145/99; PULSE 91; RESP 16; TEMP 36.5
[2019-08-10] MEDS: Labetalol 200 MG Tablet PO (14:47)
--- NOTE | 2019-08-10 15:32 | NURSING ---
Pt has been involved in baby care today. Pt initiating feeds and checking diaper. Bath demonstration done today with pt and pt asking appropriate questions.
[2019-08-10 15:50] VITALS: BP 135/88; PULSE 82; RESP 18; TEMP 36.7
[2019-08-10 19:54] VITALS: BP 137/90; PULSE 86; RESP 16; TEMP 36.4
[2019-08-11 00:20] VITALS: BP 138/91; PULSE 86; RESP 16; TEMP 37
[2019-08-11 03:55] VITALS: BP 136/92; PULSE 91; RESP 16; TEMP 36.6
[2019-08-11] MEDS: Labetalol 200 MG Tablet PO (03:59)
[2019-08-11] MEDS: Acetaminophen 650 MG/20 ML UDC 1000 MG PO (07:00)
[2019-08-11 08:00] VITALS: BP 147/92; PULSE 79; RESP 18; TEMP 36.7; O2SAT 98
--- NOTE | 2019-08-11 08:05 | NURSING ---
Pt called RN to room with c/o nausea. FOB holding baby, baby crying. Pt states I can't feed her because I feel like I am going to throw up. Pt affect flat, states she is scared to throw up because of incision. Pt states nausea possibly caused by gas pain. Mylicon given. FOB advised to give additional 5 cc formula at this time.
--- NOTE | 2019-08-11 08:37 | NURSING ---
While this RN in room doing morning assessment, pt's Mother in law talking on cell phone on speaker setting. MIL questioned Earl, , if he was holding the baby. When Earl reported Yes, his mother responded You shouldn't be holding that baby, you should lay her in the crib because she will want you to hold her all the time. Rn attempted to instruct Dad and his mother on addressing baby's needs. SHANE stated So you are telling someone who raised 4 kids how to care for a baby? RN attempted to continue discussion with MIL who abruptly hung up phone. FOB and pt then apologetic, states she was raised in foster care and has issues. MOB then reports that relationship with MIL is strained and a source of stress.
--- NOTE | 2019-08-11 09:31 | PN.OBGYN_ITS ---
Patient Problems: Active and Suspected Problems (Last Updated 08/06/19 @ 17:25 by Queenie Beck) 39 weeks gestation of (Acute) Primiparous (Acute) Gestational hypertension (Acute) Preeclampsia (Acute) Arrested labor (Acute) Subjective: Patient seen at bedside, doing well. Patient reports some incisional discomfort and gas pain. Lochia mild. Denies visual changes, headaches. Significant concern over feeding issues with the baby. Discussed with the patient with thermoscrew operator and charge nurse in the room that she would be discharged home today and could stand hotel status if desired but the baby would not be discharged home due to safety concerns. - Physical Exam Vitals/I&O's: Vital Signs Temp Pulse Resp BP Pulse Ox 98.0 F 79 18 147/92 H 98 08/11/19 08:00 08/11/19 08:00 08/11/19 08:00 08/11/19 08:00 08/11/19 08:00 Oxygen Delivery Method Room Air Weight: 89.2 kg Body Mass Index (BMI) 34.8 General: Alert, Oriented x3 Abdomen: Soft, Non-Distended, Passing Flatus, - - fundus firm. Dressing dry and intact Extremities: No Calf Tenderness Current Medications Acetaminophen (Tylenol Liquid) 1,000 mg PO Q8H PRN PRN PRN Reason: PAIN 1-3 Last Admin: 08/11/19 07:00 Dose: 1,000 mg Documented by: Bisacodyl (Dulcolax) 10 mg RECTAL UD PRN PRN Reason: If no BM Calcium Gluconate () 1 gm IV X1 PRN PRN Reason: MAGNESIUM TOXICITY Enoxaparin Sodium (Lovenox) 40 mg SC DAILY [facility] Last Admin: 08/10/19 10:44 Dose: 40 mg Documented by: Hydrocortisone (Hytone) 1 applic TOPICAL TID PRN PRN; Protocol PRN Reason: Discomfort Naloxone HCl 4 mg/ Dextrose 504 mls @ 0 mls/hr IV .Q0M PRN; Protocol PRN Reason: Respiratory depression Labetalol HCl (Trandate) 20 - 80 mg IV Q10M PRN PRN; Protocol PRN Reason: BP>160/110mmHg Labetalol HCl (Trandate) 200 mg PO Q12H [facility] Last Admin: 08/11/19 03:59 Dose: 200 mg Documented by: Naloxone HCl (Narcan) 0.02 mg IV Q1M PRN PRN Reason: RR <10 and pt unresponsive Ondansetron HCl (Zofran) 4 mg IV Q4H PRN PRN PRN Reason: Nausea Oxycodone HCl (Oxyir) 5 - 10 mg PO Q4H PRN PRN PRN Reason: Pain Score 4-10/10 Prochlorperazine Edisylate (Compazine Iv) 10 mg IV Q6H PRN PRN PRN Reason: NAUSEA Senna/Docusate Sodium (Senokot-S, Daija-Colace) 0 tablet PO DAILY PRN PRN Reason: Constipation Simethicone (Mylicon) 80 mg PO PCHS PRN PRN Reason: Indigestion/stomach pain Last Admin: 08/11/19 08:03 Dose: 80 mg Documented by: Sodium Chloride () 5 - 15 ml IV UD PRN PRN Reason: SALINE FLUSH Last Admin: 08/09/19 11:33 Dose: 10 ml Documented by: Medical Necessity - Tobacco Use Smoking Status: Never smoker Assessment/Plan All Active Problems (Last Updated 08/06/19 @ 17:25 by Queenie Beck) 39 weeks gestation of (Acute) Primiparous (Acute) Gestational hypertension (Acute) Preeclampsia (Acute) Arrested labor (Acute) POD#4 1) BPs stable- will continue labetalol 200mg BID 2) pain mgmt 3) dc home today- Hotel status if desired 4) discussed that she will need to be seen this week in office for BP check
--- NOTE | 2019-08-11 09:32 | NURSING ---
Addendum entered by Citlali Murillo 08/11/19 09:46: At this time, ped, vacation guide and staff are reluctant to disharge baby for safety reason. Currently waiting on parents decision to go home or stay on Hotel status. Original Note: A huddle was called with Dr Hinojosa, Dr Steele, Viridiana Buckley Jcassidy about discharge pt and baby today. Daniela social service manager was contacted at 910 this morning with concerns on sending baby home. Her nurse PG this morning voiced pt did not want to feed baby due to feeling nauseated. Dad did cup feed baby 10cc formula but baby was acting as though she was still hungry. He was going to give baby more formula. FOB mom was on speaker phone with them and instructed Dad that he is not to hold the baby all the time when it cries. His mom was instructed that this is not spoiling baby to be held that instead the baby is in need of something--diaper change, feeding, upset stomach etc.. His mother ultimately hung up the phone. Dr Hinojosa, Dr Steele and Viridiana did go to room and pt was instructed that she was OK for discharge but baby would need to stay one more night to monitor feeding issues. Pt was informed that she would be able to stay Hotel status or go home (coming in to feed baby). Several times pt talked of wanting to feed baby this AM but did not feel good. When asked about breast feeding she did say she would like to breast feed but will do what is best for baby. She was assisted to a sitting position and turned to her and asked him what he wanted to do. They both decided that they needed time to discuss whether or not they would go home without baby or stay as Hotel status.
--- NOTE | 2019-08-11 09:35 | DCINST_ITS ---
Discharge Diet: No Restrictions Discharge Activity: Return to Normal Activity, May Not Drive - for 2 weeks, May not drive while taking narcotic pain medications., May Shower, May Take a Tub Bath - in 7 days. May resume sexual activity in: 4-6 weeks Lifting Restrictions: 20 pounds Additional Activity Instructions:: Nothing in the vagina for 4-6 weeks. You may return to work/school in 6 weeks. Call your doctor if your incision/area has: Continuous Slow Oozing, Sudden Increased Bleeding, Increased Pain/ Swelling, Increased Redness, Foul Smelling Discharge Call your doctor if you observe: Fever of 101 or Higher, Using more than one pad per hour - for 2 hours Suture Line Care: Avoid Pulling/Pushing, Avoid Pinching/Bending Cleanse incision/area with: Keep Dressing Clean & Dry Instructions: Measles, Mumps, Rubella Antibody Additional Instructions: If you experience any of the following, contact your healthcare provider. * Bleeding that soaks a pad every hour for 2 hours * Fever 100.4 or higher * Unrelieved incision or abdominal pain * Swelling, redness, discharge or bleeding from your incision or episiotomy site * Your incision begins to separate * Problems urinating (including inability to urinate or burning while urinating). * Visual changes * Severe headache * Flu-like symptoms * Pain or redness in one of both of your breasts * Pain, warmth, tenderness or swelling in your legs, especially the calf area * Frequent nausea and vomiting * Symptoms of depression or anxiety If you experience any of the following, call 911 or go to the nearest Emergency Room. * Chest pain * Problems breathing * Seizure activity * Partial or complete paralysis of a body part, slurred speech, weakness or drooping of the face, or a sudden inability to walk or hold your balance Allergies/Adverse Reactions: Allergies No Known Allergies Allergy (Verified 08/06/19 12:34) Medications to take at Discharge Multivitamin [Children's Chewable Vitamin] 1 ea PO DAILY 08/06/19 Ibuprofen [Motrin] 600 mg PO Q6H PRN PRN #60 tab 08/09/19 Oxycodone [Oxyir] 5 - 10 mg PO Q4H PRN PRN 7 Days #20 tab 08/09/19 Senna/Docusate Sodium [Senokot-S] 1 tab PO DAILY PRN #30 tab 08/09/19 SimETHICONE [Mylicon] 80 mg PO PCHS PRN #30 tab 08/09/19 Labetalol [Trandate (Beta Mackenzie)] 100 mg PO BID #60 tab 08/10/19 Labetalol [Trandate (Beta Mackenzie)] 200 mg PO Q12H #60 tab 08/11/19 The following prescriptions were given: Ibuprofen [Motrin] 600 mg PO Q6H PRN PRN #60 tab PRN Reason: Pain Or Fever Transmission Status: Received by [address] SimETHICONE [Mylicon] 80 mg PO PCHS PRN #30 tab PRN Reason: Indigestion/stomach pain Transmission Status: Received by [address] Oxycodone [Oxyir] 5 - 10 mg PO Q4H PRN PRN 7 Days #20 tab PRN Reason: Pain Score 6-10/10 Transmission Status: Received by [address] Senna/Docusate Sodium [Senokot-S] 1 tab PO DAILY PRN #30 tab PRN Reason: Constipation Transmission Status: Received by [address] Labetalol [Trandate (Beta Mackenzie)] 100 mg PO BID #60 tab Transmission Status: Received by [address] Labetalol [Trandate (Beta Mackenzie)] 200 mg PO Q12H #60 tab Transmission Status: Pending to [address] Follow-Up: Call to make an appointment with your doctor for an incision check in 1-2 weeks. You will also need a 6 week post- follow up appointment. Test results from this visit will be discussed in further detail at your follow- up appointment, if applicable. Please Follow Up With: Dolores Siu MD - needs to be seen in 48-72 for BP check When: You will need a post- check in 6 weeks. Primary Care Physician: Reji Calderón MD [Primary Care Provider] -
--- NOTE | 2019-08-11 09:38 | PCM.DC.BLA ---
Discharge Summary Date of Admission: 08/06/19 Date of Discharge: 08/11/19 Summary: 23-year-old female that was admitted to [facility] on August 06, 2019 for induction of labor due to preeclampsia with severe features. Patient progressed to fully dilated and pushing but subsequently had a primary low transverse section for arrest of descent. Patient had a uncomplicated postoperative course. She did receive magnesium and was placed on p.o. labetalol for blood pressure maintenance therapy. She was discharged home on postoperative day #4, stable condition. Safety concerns with the infant so pediatricians will be keeping the baby for at least 1 more day of observation. Patient Problems: Active and Suspected Problems (Last Updated 08/06/19 @ 17:25 by Queenie Beck) 39 weeks gestation of (Acute) Primiparous (Acute) Gestational hypertension (Acute) Preeclampsia (Acute) Arrested labor (Acute) - Physical Exam Vitals/I&O's: Vital Signs Temp Pulse Resp BP Pulse Ox 98.0 F 79 18 147/92 H 98 08/11/19 08:00 08/11/19 08:00 08/11/19 08:00 08/11/19 08:00 08/11/19 08:00 Oxygen Delivery Method Room Air Weight: 89.2 kg Body Mass Index (BMI) 34.8 Current Medications Acetaminophen (Tylenol Liquid) 1,000 mg PO Q8H PRN PRN PRN Reason: PAIN 1-3 Last Admin: 08/11/19 07:00 Dose: 1,000 mg Documented by: Bisacodyl (Dulcolax) 10 mg RECTAL UD PRN PRN Reason: If no BM Calcium Gluconate () 1 gm IV X1 PRN PRN Reason: MAGNESIUM TOXICITY Enoxaparin Sodium (Lovenox) 40 mg SC DAILY [facility] Last Admin: 08/10/19 10:44 Dose: 40 mg Documented by: Hydrocortisone (Hytone) 1 applic TOPICAL TID PRN PRN; Protocol PRN Reason: Discomfort Naloxone HCl 4 mg/ Dextrose 504 mls @ 0 mls/hr IV .Q0M PRN; Protocol PRN Reason: Respiratory depression Labetalol HCl (Trandate) 20 - 80 mg IV Q10M PRN PRN; Protocol PRN Reason: BP>160/110mmHg Labetalol HCl (Trandate) 200 mg PO Q12H [facility] Last Admin: 08/11/19 03:59 Dose: 200 mg Documented by: Naloxone HCl (Narcan) 0.02 mg IV Q1M PRN PRN Reason: RR <10 and pt unresponsive Ondansetron HCl (Zofran) 4 mg IV Q4H PRN PRN PRN Reason: Nausea Oxycodone HCl (Oxyir) 5 - 10 mg PO Q4H PRN PRN PRN Reason: Pain Score 4-10/10 Prochlorperazine Edisylate (Compazine Iv) 10 mg IV Q6H PRN PRN PRN Reason: NAUSEA Senna/Docusate Sodium (Senokot-S, Daija-Colace) 0 tablet PO DAILY PRN PRN Reason: Constipation Simethicone (Mylicon) 80 mg PO PCHS PRN PRN Reason: Indigestion/stomach pain Last Admin: 08/11/19 08:03 Dose: 80 mg Documented by: Sodium Chloride () 5 - 15 ml IV UD PRN PRN Reason: SALINE FLUSH Last Admin: 08/09/19 11:33 Dose: 10 ml Documented by:
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
[2019-08-12 10:10] LABS: Pathology Specimen OB SEE PATHOLOGY REPORT
== END 2019-08-11 12:00 | disposition home or self-care (01) | DRG 540 ==
PROVIDERS: Obstetrics & Gynecology; Admitting Provider Obstetrics & Gynecology; Family Provider Family Medicine; PCP Family Medicine; Visit Provider Obstetrics & Gynecology
DX: O62.1 Secondary uterine inertia (principal); O75.81 Maternal exhaustion complicating labor and delivery; O14.14 Severe pre-eclampsia complicating childbirth; O64.0XX0 Obstructed labor due to incomplete rotation of fetal head, not applicable or unspecified; O77.0 Labor and delivery complicated by meconium in amniotic fluid; Z3A.39 39 weeks gestation of pregnancy; Z37.0 Single live birth
CPT/HCPCS: 59025; 59050; 80053; 82565; 82570; 83735; 84156; 84450; 84460; 84550; 85025; 85027; 85461; 85610; 85730; 86850; 86900; 86901; 88307; 90384; 99218; J7120; A4216; G0378; J2405; J2790

== ENCOUNTER → 2021-05-20 10:30 | Outpatient (CLI) | payer MEDICAID, SELFPAY ==
--- NOTE | 2021-05-21 10:53 | PFT ---
INTRODUCTION: The patient is a 25-year-old female that presents for pulmonary function studies secondary to a diagnosis of wheezing. Respiratory therapy reported good patient effort. Bronchodilators were used during testing. INTERPRETATION: Forced expiration spirometry demonstrates no evidence of a large airways obstructive ventilatory defect. There was no significant response to aerosolized bronchodilators. Spirograms are of good quality and plateau normally. The respiratory flow volume loop is normal. Body plethysmography was performed and reveals lung volumes to be within normal limits. Diffusing capacity by single breath CO is also within normal limits. IMPRESSION: Grossly normal pulmonary function studies.
== END ==
PROVIDERS: PCP Family Medicine; Referring Provider Student in an Organized Health Care Education/Training Program; Visit Provider Student in an Organized Health Care Education/Training Program
DX: R06.2 Wheezing (principal)
CPT/HCPCS: 94060; 94726; 94729

== ENCOUNTER → 2021-06-25 07:04 | Outpatient (CLI) | payer MEDICAID, SELFPAY ==
[2021-06-25] MEDS: Methacholine Chloride 18 ml neb kit INHALATION (07:22)
--- NOTE | 2021-06-25 14:39 | BRONCHALL ---
Bronchoprovocation Challenge Bronchoprovocation Challenge Bronchoprovocation Challenge: BRONCHOPROVOCATION STUDY INTERPRETATION Brief HPI: Patient is a 25 year old female, currently under the care of Dr. Martínez, who presents to [facility] for a bronchoprovocation study secondary to diagnosis of wheezing. Respiratory therapist reports good effort and reproducible results. Interpretation: Initial spirometry showed no large airways obstructive ventilatory defect. The patient was then given increasingly concentrated doses of methacholine in a stepwise/standardized fashion, using a modified ATS protocol. The patient?s maximum reduction in FEV1 was 10 percent predicted. Impression: Negative Bronchoprovocation study. This is NOT consistent with the diagnosis of asthma.
== END ==
PROVIDERS: PCP Family Medicine; Referring Provider Internal Medicine Critical Care Medicine; Visit Provider Internal Medicine Critical Care Medicine
DX: R06.2 Wheezing (principal)
CPT/HCPCS: 94070; 95070

== ENCOUNTER → 2021-07-09 19:56 | Outpatient (CLI) | payer MEDICAID, SELFPAY | PROVIDERS: PCP Family Medicine; Referring Provider Internal Medicine Critical Care Medicine; Visit Provider Internal Medicine Critical Care Medicine | DX: G47.33 Obstructive sleep apnea (adult) (pediatric) (principal) | CPT/HCPCS: 95810 ==

== ENCOUNTER → 2021-08-02 12:22 | Outpatient (CLI) | payer MEDICAID, SELFPAY ==
[2021-08-02 12:30] VITALS: PULSE 108; PULSE 80; PULSE 94; PULSE 97; PULSE 98; PULSE 99; O2SAT 97; O2SAT 98; O2SAT 99
--- NOTE | 2021-08-02 16:04 | PCM.PSN.6M ---
PSN 6 Minute Walk Test 6 Minute Walk Test 6 Minute Walk Test: 6 Minute Walk Test PSN:6-Minute Walk Test Start: 08/02/21 12:41 Freq: Status: Active Protocol: [id number] Document 08/02/21 12:30 HJ (Rec: 08/02/21 12:44 HJ [id number]) 6 Minute Walk Test Date Performed 08/02/21 Time Performed 12:30 Height 5 ft 3 in Weight: 84.368 kg Weight in Pounds 186.[address]: Yasmani Martínez FIO2 (% Oxygen) 21 Assistive device used: None Pre-test Oxygen Delivery Method Room Air Pulse Ox (%) 99 Pulse Rate (60-100 beats/min) 80 Dyspnea Stuart Scale (0-10) 0 Exertion Stuart Scale (6-20) 6 1st minute Oxygen Delivery Method Room Air Pulse Ox (%) 98 Pulse Rate (60-100 beats/min) 97 2nd minute Oxygen Delivery Method Room Air Pulse Ox (%) 97 Pulse Rate (60-100 beats/min) 99 3rd minute Oxygen Delivery Method Room Air Pulse Ox (%) 98 Pulse Rate (60-100 beats/min) 97 4th minute Oxygen Delivery Method Room Air Pulse Ox (%) 98 Pulse Rate (60-100 beats/min) 108 H 5th minute Oxygen Delivery Method Room Air Pulse Ox (%) 99 Pulse Rate (60-100 beats/min) 94 6th minute Oxygen Delivery Method Room Air Pulse Ox (%) 99 Pulse Rate (60-100 beats/min) 98 Post-test Oxygen Delivery Method Room Air Pulse Ox (%) 99 Pulse Rate (60-100 beats/min) 94 Dyspnea Stuart Scale (0-10) 0.5 Exertion Stuart Scale (6-20) 6 Full Laps Walked 16 Partial Lap, Number of Tiles Walked 0 Total Distance Walked (ft) 944 Interpretation Interpretation: The patient was able to ambulate 944 feet over the course of 6 minutes on room air with no assistive devices or breaks. The patient experienced no significant desaturation, but did have a peak heart rate of 108 bpm. These findings are consistent with deconditioning. Recommendations Recommendations: No supplemental oxygen is indicated at this time.
== END ==
PROVIDERS: PCP Student in an Organized Health Care Education/Training Program; Referring Provider Internal Medicine Critical Care Medicine; Visit Provider Internal Medicine Critical Care Medicine
DX: R06.2 Wheezing (principal)
CPT/HCPCS: 94618